=== PATIENT | female | born 1930 | race Caucasian/White ===

== ENCOUNTER → 2018-08-02 | Outpatient (CLI) | payer MEDICARE, BC ==
[2018-08-02 11:16] LABS: ALBUMIN 3.8 g/dL (3.4-4.8); CALCIUM 11.5 mg/dL (8.4-10.2); POTASSIUM 3.8 mmol/L (3.5-5.1); TOTAL BILIRUBIN 0.6 mg/dL (0.2-1.2); TOTAL PROTEIN 6.3 g/dL (6.2-8.1)
[2018-08-02 13:13] LABS: HEMATOCRIT 35.5 % (37.0-47.0); HEMOGLOBIN 11.7 g/dL (12.5-16.0); MEAN CELL VOLUME 93 fl (78-100); MEAN CORPUSCULAR HEMOGLOBIN 31 pg (27-31); MEAN CORPUSCULAR HGB CONC 33 g/dL (33-37); MEAN PLATELET VOLUME 10.1 fl (7.4-10.4); PLATELET COUNT 241 K/mm3 (130-400); RED BLOOD COUNT 3.82 M/mm3 (4.10-5.30); RED CELL DISTRIBUTION WIDTH 12.1 % (11.5-14.5); WHITE BLOOD COUNT 5.7 K/mm3 (4.8-10.8)
[2018-08-02 15:04] LABS: LYMPHOCYTE 24 % (20-51); MONOCYTE 9 % (3-10); NEUTROPHILS 65 % (42-75)
[2018-08-02 15:06] LABS: ERYTHROCYTE SEDIMENTATION RATE 50 mm/hr (0-30)
== END ==
LOC: RAD 10:23
PROVIDERS: Family Medicine
DX: M19.041 Primary osteoarthritis, right hand (principal); M79.89 Other specified soft tissue disorders